=== PATIENT | female | born 1960 | race Caucasian/White ===

== ENCOUNTER 2023-08-18 15:58 | Inpatient (IN) | payer MEDICAID, OTHER ==
[~2023-08-18] VITALS: Ht 165.1 cm; Wt 64.0 kg
[2023-08-18] MEDS ORDERED: HALOPERIDOL 5 MG TABLET PO PRN (18:00)
[2023-08-18 18:06] LABS: APPEARANCE,URINE CLEAR (CLEAR); BILIRUBIN,URINE NEGATIVE (NEGATIVE); COLOR,URINE YELLOW (YELLOW); GLUCOSE, URINE (UA) NEGATIVE (NEGATIVE); KETONES,URINE NEGATIVE (NEGATIVE); LEUKOCYTE ESTERASE ,URINE NEGATIVE (NEGATIVE); NITRATE,URINE NEGATIVE (NEGATIVE); OCCULT BLOOD,URINE NEGATIVE (NEGATIVE); PROTEIN,URINE 30-70 mg/dL (NEGATIVE); SPECIFIC GRAVITIY, URINE 1.026 (1.003-1.030); UROBILINOGEN,URINE <=1.0 mg/dL (<=1.0)
[2023-08-18 18:13] LABS: ALCOHOL, URINE DRUG SCREEN NEGATIVE (NEGATIVE); AMPHET/METH SCREEN,URINE NEGATIVE (NEGATIVE); BARBITURATE SCREEN, URINE NEGATIVE (NEGATIVE); BENZODIAZEPINES SCREEN,URINE NEGATIVE (NEGATIVE); CANNABINOID SCREEN,URINE POSITIVE (NEGATIVE); COCAINE SCREEN,URINE NEGATIVE (NEGATIVE); METHADONE SCREEN, URINE NEGATIVE (NEGATIVE); OPIATE SCREEN,URINE NEGATIVE (NEGATIVE); PHENCYCLIDINE SCREEN,URINE NEGATIVE (NEGATIVE)
[2023-08-18 18:20] LABS: BACTERIA,URINE None Seen /HPF (None Seen); RBC,URINE None Seen /HPF (0-2); SQUAMOUS EPITHELIAL CELL,UR Few /LPF (None Seen); WBC,URINE 0-2 /HPF (0-5)
[2023-08-18 18:26] LABS: COVID AG,FIA SOURCE NASAL SWAB; SARS-COV2 (COVID) ANTIGEN,FIA Negative (Negative)
[2023-08-18 18:27] LABS: BASOPHILS % (AUTO) 0.5 % (0.0-2.0); EOSINOPHILS % (AUTO) 1.6 % (1.0-6.0); HEMATOCRIT 36.7 % (36-46); HEMOGLOBIN 12.5 g/dL (12.0-16.0); LYMPHOCYTES # (AUTO) 2.7 K/uL (1.0-4.8); LYMPHOCYTES % (AUTO) 43.8 % (22.0-44.0); MEAN CORPUSCULAR HEMOGLOBIN 33.4 pg (26.0-34.0); MEAN CORPUSCULAR HGB CONC 33.9 G/dL (31.0-37.0); MEAN CORPUSCULAR VOLUME 98 fL (80-100); MONOCYTES # (AUTO) 0.4 K/uL (0.1-1.0); MONOCYTES % (AUTO) 7.3 % (2.0-9.0); NEUTROPHILS # (AUTO) 2.9 K/uL (1.8-7.7); NEUTROPHILS % (AUTO) 46.8 % (40.0-70.0); PLATELET COUNT (AUTO) 252 K/uL (150-450); RED BLOOD CELL COUNT(AUTO) 3.73 MIL/uL (4.00-5.20); RED CELL DISTRIBUTION WIDTH 14.3 % (11.5-14.5); WHITE BLOOD COUNT (AUTO) 6.2 K/uL (4.5-11.0)
[2023-08-18 18:38] LABS: ANION GAP 8 mmol/L (8-16); CALCIUM, TOTAL 8.5 mg/dL (8.8-10.5); CARBON DIOXIDE 28 mmol/L (22-29); CHLORIDE 103 mmol/L (98-107); CREATININE 0.75 mg/dL (0.60-1.30); GLOMERULAR FILTR. RATE CALC > 60 mL/min (>60); GLUCOSE,RANDOM 106 mg/dL (70-110); SODIUM SERUM 139 mmol/L (136-145); UREA NITROGEN, BLOOD 13 mg/dL (7-18)
[2023-08-18 18:43] LABS: ALANINE AMINOTRANSFERASE 29 U/L (12-78); ALBUMIN 3.3 g/dL (3.4-5.0); ALKALINE PHOSPHATASE 63 U/L (46-116); ASPARTATE AMINOTRANSFERASE 23 U/L (15-37); BILIRUBIN,TOTAL 0.3 mg/dL (0.1-1.0); LIPASE 67 U/L (16-77); TOTAL PROTEIN, SERUM 6.2 g/dL (6.4-8.2)
[2023-08-18 18:48] LABS: ALCOHOL, BLOOD (SERUM) < 3 mg/dL (0-10)
[2023-08-18 18:49] LABS: TROPONIN I-HIGH SENSITIVITY 10 ng/L (<51)
[2023-08-19] MEDS: LORazepam 2 MG TABLET PO PRN ×2 (03:00→18:15)
[2023-08-19] MEDS: ZOLPIDEM TARTRATE 10 MG TABLET PO PRN ×3 (03:00→03:03)
[2023-08-19] MEDS ORDERED: GABA-1201 PO (10:49)
[2023-08-19] MEDS ORDERED: ESCI20TA87 PO (10:49)
[2023-08-19] MEDS ORDERED: GABAPENTIN 300 MG CAPSULE PO ONE (11:00)
[2023-08-19] MEDS ORDERED: ESCITALOPRAM OXALATE 20 MG TABLET PO ONE (11:00)
[2023-08-19] MEDS: GABAPENTIN 300 MG CAPSULE PO SCH ×2 (14:36→20:33)
[2023-08-19] MEDS ORDERED: HALOPERIDOL 5 MG TABLET PO ONE (15:15)
[2023-08-19] MEDS ORDERED: DiphenhydrAMINE HCL 25 MG CAPSULE PO ONE (15:15)
[2023-08-19 17:15] VITALS: BP 137/88; PULSE 66; RESP 18; TEMP 97.8; O2SAT 99
[2023-08-19] MEDS ORDERED: INFLUENZA VIRUS VACCINE QVS 2023-24 (6MO+)/PF 60 MCG/0.5 ML SYRINGE IM. ONE (17:30)
[2023-08-19] MEDS: LORazepam 2 MG TABLET PO ONE ×2 (18:10→20:33)
[2023-08-19 22:37] VITALS: BP 134/78; PULSE 75; RESP 18; TEMP 97.2
[2023-08-20] MEDS: GABAPENTIN 300 MG CAPSULE PO SCH (08:52)
[2023-08-20] MEDS ORDERED: ESCITALOPRAM OXALATE 20 MG TABLET PO SCH (09:00)
[2023-08-20 10:31] VITALS: BP 120/62; PULSE 85; RESP 17; TEMP 97.3; O2SAT 99
[2023-08-20] MEDS: GABAPENTIN 400 MG CAPSULE PO SCH ×2 (12:17→16:16)
[2023-08-20] MEDS ORDERED: NICOTINE 14 MG/24 HOUR PATCH TD PRN (15:45)
[2023-08-20] MEDS ORDERED: ALBUTEROL SULFATE HFA 90 MCG/PUFF 8 GM INHALER IH PRN (15:45)
[2023-08-20] MEDS ORDERED: MAGNESIUM HYDROXIDE SUSPENSION 30 ML UDCUP PO PRN (15:45)
[2023-08-20] MEDS ORDERED: CloNIDine HCL 0.1 MG TABLET PO PRN (15:45)
[2023-08-20] MEDS ORDERED: LOPERAMIDE HCL 2 MG CAPSULE PO PRN (15:45)
[2023-08-20] MEDS ORDERED: ONDANSETRON HCL 4 MG TABLET PO PRN (15:45)
[2023-08-20] MEDS ORDERED: IBUPROFEN 400 MG TABLET PO PRN (15:45)
[2023-08-20] MEDS ORDERED: PETROLATUM,WHITE 28 GM JELLY TP PRN (15:45)
[2023-08-20] MEDS ORDERED: MAG HYDROX/AL HYDROX/SIMETH ES 30 ML SUSPENSION UDCUP PO PRN (15:45)
[2023-08-20] MEDS ORDERED: GuaiFENesin/D-METHORPHAN [SUGAR-FREE] 200-20MG/10 ML SYRUP UDCUP PO PRN (15:45)
[2023-08-20] MEDS ORDERED: ACETAMINOPHEN 325 MG TABLET PO PRN (15:45)
[2023-08-20] MEDS ORDERED: DOCUSATE SODIUM 100 MG CAPSULE PO PRN (15:45)
[2023-08-20 21:30] VITALS: BP 132/77; PULSE 78; RESP 17; TEMP 97.6
[2023-08-21 06:07] LABS: HEPATITIS C AB (EIA) Non Reactive (Non Reactive)
[2023-08-21 08:09] LABS: HEMOGLOBIN A1C 5.5 % (3.8-5.6)
[2023-08-21 08:24] LABS: CHOL/HDL RATIO 2.9 (3.9-5.7); THYROID STIMULATING HORMONE 3.77 uIU/mL (0.36-3.74)
[2023-08-21] MEDS: ESCITALOPRAM OXALATE 20 MG TABLET PO SCH (09:43)
[2023-08-21] MEDS: GABAPENTIN 400 MG CAPSULE PO SCH ×3 (09:43→16:44)
[2023-08-21 10:10] VITALS: BP 123/96; PULSE 80; RESP 16; TEMP 98; O2SAT 95
[2023-08-21] MEDS: NICOTINE POLACRILEX 2 MG LOZENGE PO PRN (11:11)
[2023-08-21 20:03] VITALS: BP 140/77; PULSE 65; RESP 17; TEMP 97.7; O2SAT 97
[2023-08-21] MEDS: ZOLPIDEM TARTRATE 10 MG TABLET PO PRN (20:47)
[2023-08-22] MEDS: NICOTINE POLACRILEX 2 MG LOZENGE PO PRN (08:19)
[2023-08-22] MEDS: ESCITALOPRAM OXALATE 20 MG TABLET PO SCH (08:19)
[2023-08-22] MEDS: GABAPENTIN 400 MG CAPSULE PO SCH ×2 (08:19→12:58)
[2023-08-22 08:32] VITALS: BP 142/75; PULSE 82; RESP 16; TEMP 97.7; O2SAT 96
== END 2023-08-22 12:45 | disposition left against medical advice (07) | DRG 750 ==
LOC: EMS 16:02 → B3A 08-19 14:07
PROVIDERS: ADMIT Psychiatry & Neurology Child & Adolescent Psychiatry; ATTEND Psychiatry & Neurology Child & Adolescent Psychiatry
DX: F25.1 Schizoaffective disorder, depressive type (principal); R45.851 Suicidal ideations; E78.5 Hyperlipidemia, unspecified; F41.9 Anxiety disorder, unspecified; F10.90 Alcohol use, unspecified, uncomplicated; F12.90 Cannabis use, unspecified, uncomplicated; F17.210 Nicotine dependence, cigarettes, uncomplicated; Z53.29 Procedure and treatment not carried out because of patient's decision for other reasons; Z88.8 Allergy status to other drugs, medicaments and biological substances; Z20.822 Contact with and (suspected) exposure to COVID-19
CPT/HCPCS: 80053; 80061; 80307; 81001; 83036; 83690; 84443; 84484; 85025; 86803; 87340; 99285; G0480; Q9967